=== PATIENT | male | born 1965 | race Caucasian/White ===

== ENCOUNTER 2018-02-06 08:55 | Day surgery (SDC) | payer MEDICARE ==
[2018-02-06] MEDS ORDERED: Depo-Medrol 40 MG/ML IM ONE (08:56)
[2018-02-06] MEDS ORDERED: Xylocaine 1% Vial 30 ML PF IJ ONE (08:56)
[2018-02-06] MEDS ORDERED: LIDOCAINE HCL 2% 100 MG/5 ML IJ ONE (08:56)
[2018-02-06] MEDS ORDERED: Lactated Ringers 1,000 ML IV ONE (10:29)
--- NOTE | 2018-02-06 12:17 | XRAY ---
Indication: L4, L5, and S1 MBB. Intraoperative fluoroscopy was provided for 33 seconds. 6 digital spot images submitted for interpretation demonstrates posterior spinal needles with the needle tips projecting over the left/right L4 transverse processes, right L5 transverse process, and right L5-S1 facet. Correlate with intraoperative findings/report.
--- NOTE | 2018-02-06 12:17 | XRAY ---
33 seconds of fluoroscopy time in surgery for L4, L5, and S1 MBB.
== END 2018-02-06 11:10 | disposition home or self-care (01) ==
LOC: SDC-PAIN 08:55
PROVIDERS: ATTEND Psychiatry & Neurology Pain Medicine
DX: M54.5 Low back pain (principal); M47.816 Spondylosis without myelopathy or radiculopathy, lumbar region; M46.96 Unspecified inflammatory spondylopathy, lumbar region
CPT/HCPCS: 64493; 64494; 72100; 77002; J1030; J2001

== ENCOUNTER 2018-05-08 09:11 | Day surgery (SDC) | payer MEDICARE ==
[2018-05-08] MEDS ORDERED: DIPRIVAN 200 MG/20 ML IV ONE (09:12)
[2018-05-08] MEDS ORDERED: Depo-Medrol 40 MG/ML IM ONE (09:12)
[2018-05-08] MEDS ORDERED: Xylocaine-Mpf 2% 5 Ml Vial IJ ONE (09:12)
[2018-05-08] MEDS ORDERED: Lactated Ringers 1,000 ML IV ONE (14:50)
--- NOTE | 2018-05-08 16:01 | XRAY ---
5 seconds fluoroscopy time in surgery for bilateral L4-S1 MBB.
--- NOTE | 2018-05-09 04:16 | XRAY ---
Indication: Bilateral L4-S1 MBB. Intraoperative fluoroscopy was provided for 5 seconds. One posterior intraoperative C-arm image was obtained. Posterior spinal needle tips are seen projected over the expected course of the left and right L4-S1 nerve roots. Correlate with intraoperative findings/report.
== END 2018-05-08 11:15 | disposition home or self-care (01) ==
LOC: SDC-PAIN 09:11
PROVIDERS: ATTEND Psychiatry & Neurology Pain Medicine
DX: M54.5 Low back pain (principal); M47.819 Spondylosis without myelopathy or radiculopathy, site unspecified; M47.817 Spondylosis without myelopathy or radiculopathy, lumbosacral region
CPT/HCPCS: 64493; 64494; 72020; 77003; J1030; J2704

== ENCOUNTER 2018-05-29 10:28 | Day surgery (SDC) | payer MEDICARE ==
[2018-05-29] MEDS ORDERED: Depo-Medrol 40 MG/ML IM ONE (10:29)
[2018-05-29] MEDS ORDERED: DIPRIVAN 200 MG/20 ML IV ONE (10:29)
[2018-05-29] MEDS ORDERED: Sodium Chloride 0.9% 10 ML FLUSH Syringe IJ ONE (10:29)
[2018-05-29] MEDS ORDERED: Xylocaine 1% Vial 30 ML PF IJ ONE (10:29)
[2018-05-29] MEDS ORDERED: Lactated Ringers 1,000 ML IV ONE (14:52)
--- NOTE | 2018-05-29 14:54 | XRAY ---
Indication: Lumbar MASHA. Intraoperative fluoroscopy was provided for 10 seconds. 2 digital spot images submitted for interpretation demonstrates a posterior midline spinal needle tip just posterior to the L4-L5 interspace. Correlate with intraoperative findings/report.
--- NOTE | 2018-05-29 16:22 | XRAY ---
10 seconds fluoroscopy time in surgery for Lumbar MASHA.
== END 2018-05-29 13:45 | disposition home or self-care (01) ==
LOC: SDC-PAIN 10:28
PROVIDERS: ATTEND Psychiatry & Neurology Pain Medicine
DX: M54.16 Radiculopathy, lumbar region (principal)
CPT/HCPCS: 62323; 72020; 77003; J1030; J2001; J2704; Q9966

== ENCOUNTER 2018-07-17 08:08 | Day surgery (SDC) | payer MEDICARE ==
[2018-07-17] MEDS ORDERED: Xylocaine 1% Vial 30 ML PF IJ ONE (08:09)
[2018-07-17] MEDS ORDERED: LIDOCAINE HCL 2% 100 MG/5 ML IJ ONE (08:09)
[2018-07-17] MEDS ORDERED: Depo-Medrol 40 MG/ML IM ONE (08:09)
[2018-07-17] MEDS ORDERED: DIPRIVAN 200 MG/20 ML IV ONE (08:09)
[2018-07-17] MEDS ORDERED: Ketamine HCl 50 MG/ML IJ ONE (08:09)
[2018-07-17] MEDS ORDERED: Marcaine 0.5% SDV 10 ML IJ ONE (08:09)
[2018-07-17] MEDS ORDERED: Lactated Ringers 1,000 ML IV ONE (12:02)
--- NOTE | 2018-07-17 12:17 | XRAY ---
22 seconds fluoroscopy time in surgery for L4-S1 RFA.
--- NOTE | 2018-07-18 09:05 | XRAY ---
Indication: L4-S1 RFA. Intraoperative fluoroscopy was provided for 22 seconds. 2 digital spot images submitted for interpretation demonstrates posterior spinal needle tips projecting over the expected course of the right L4-S1 nerve roots. Correlate with intraoperative findings/report.
== END 2018-07-17 10:15 | disposition home or self-care (01) ==
LOC: SDC-PAIN 08:08
PROVIDERS: ATTEND Psychiatry & Neurology Pain Medicine
DX: M47.817 Spondylosis without myelopathy or radiculopathy, lumbosacral region (principal); I10 Essential (primary) hypertension; Z79.899 Other long term (current) drug therapy
CPT/HCPCS: 64635; 64636; 72020; 77002; J1030; J2001; J2704

== ENCOUNTER 2018-08-21 13:16 | Day surgery (SDC) | payer MEDICARE ==
[2018-08-21] MEDS ORDERED: Marcaine 0.5% SDV 10 ML IJ ONE (13:17)
[2018-08-21] MEDS ORDERED: Depo-Medrol 40 MG/ML IM ONE (13:17)
[2018-08-21] MEDS ORDERED: DIPRIVAN 200 MG/20 ML IV ONE (13:17)
[2018-08-21] MEDS ORDERED: Xylocaine 1% Vial 30 ML PF IJ ONE ×2 (13:17)
[2018-08-21] MEDS ORDERED: Ketamine HCl 50 MG/ML IV ONE (13:17)
[2018-08-21] MEDS ORDERED: Lactated Ringers 1,000 ML IV ONE (14:39)
--- NOTE | 2018-08-21 16:27 | XRAY ---
Indication: Left L4-S1 RFA. Intraoperative fluoroscopy was provided for 19 seconds. 2 digital spot images submitted for interpretation demonstrates posterior needle tips projecting over the expected course of the left L4-S1 nerve roots. Correlate with intraoperative findings/report.
--- NOTE | 2018-08-21 16:33 | XRAY ---
19 seconds fluoroscopy time in surgery for left L4-S1 RFA.
== END 2018-08-21 15:03 | disposition home or self-care (01) ==
LOC: SDC-PAIN 13:16
PROVIDERS: ATTEND Psychiatry & Neurology Pain Medicine
DX: M47.817 Spondylosis without myelopathy or radiculopathy, lumbosacral region (principal); I10 Essential (primary) hypertension; M19.90 Unspecified osteoarthritis, unspecified site; Z79.899 Other long term (current) drug therapy
CPT/HCPCS: 72100; 77002; J1030; J2001; J2704

== ENCOUNTER 2018-09-25 09:05 | Day surgery (SDC) | payer MEDICARE ==
[2018-09-25] MEDS ORDERED: Ketamine HCl 50 MG/ML IJ ONE (09:06)
[2018-09-25] MEDS ORDERED: LIDOCAINE HCL 2% 100 MG/5 ML IJ ONE (09:06)
[2018-09-25] MEDS ORDERED: Depo-Medrol 40 MG/ML IM ONE (09:06)
[2018-09-25] MEDS ORDERED: Sodium Chloride 0.9(Preservative Free) 10 ML IJ ONE (09:06)
[2018-09-25] MEDS ORDERED: DIPRIVAN 200 MG/20 ML IV ONE (09:06)
--- NOTE | 2018-09-25 11:25 | XRAY ---
Indication: Bilateral L4-S1 MASHA. Intraoperative fluoroscopy was provided for 35 seconds. 5 digital spot images submitted for interpretation demonstrates posterior needle tips along the expected course of the left and right L4 and L5 nerve roots. Small amount of contrast injected for needle tip placement. Correlate with intraoperative findings/report.
--- NOTE | 2018-09-25 11:25 | XRAY ---
35 seconds fluoroscopy time in surgery for bilateral L4-S1 MASHA.
[2018-09-25] MEDS ORDERED: Lactated Ringers 1,000 ML IV ONE (17:09)
== END 2018-09-25 11:05 | disposition home or self-care (01) ==
LOC: SDC-PAIN 09:05
PROVIDERS: ATTEND Psychiatry & Neurology Pain Medicine
DX: M54.16 Radiculopathy, lumbar region (principal); Z79.899 Other long term (current) drug therapy; I10 Essential (primary) hypertension; M19.90 Unspecified osteoarthritis, unspecified site
CPT/HCPCS: 64483; 64484; 72100; 77003; J1030; J2704; Q9966

== ENCOUNTER 2019-06-25 13:11 | Day surgery (SDC) | payer MEDICARE ==
[2019-06-25] MEDS ORDERED: Xylocaine 1% Vial 30 ML PF IJ ONE (13:12)
[2019-06-25] MEDS ORDERED: Depo-Medrol 40 MG/ML IM ONE (13:12)
[2019-06-25] MEDS ORDERED: Sodium Chloride 0.9(Preservative Free) 10 ML IJ ONE (13:12)
--- NOTE | 2019-06-25 14:57 | XRAY ---
Indication: Right L4-S1 transforaminal MASHA. Intraoperative fluoroscopy was provided for 23 seconds. 3 digital spot images submitted for interpretation demonstrates posterior needle tips projecting over the expected course of the right L4 and L5 nerve roots. Small amount of contrast injected for needle tip placement. Correlate with intraoperative findings/report.
--- NOTE | 2019-06-25 16:31 | XRAY ---
23 seconds of fluoroscopy was used in surgery for a right L4-L5, L5-S1 transforaminal MASHA.
== END 2019-06-25 14:52 | disposition home or self-care (01) ==
LOC: SDC-PAIN 13:11
PROVIDERS: ATTEND Psychiatry & Neurology Pain Medicine
DX: M54.16 Radiculopathy, lumbar region (principal); I10 Essential (primary) hypertension; F41.8 Other specified anxiety disorders; Z79.899 Other long term (current) drug therapy
CPT/HCPCS: 64483; 64484; 72100; 77003; J1030; J2001; Q9966

== ENCOUNTER 2019-12-10 12:15 | Day surgery (SDC) | payer MEDICARE ==
[~2019-12-10 12:15] MED LIST: DIPRIVAN 200 MG/20 ML IV ONE; Ketamine HCl 50 MG/ML ONE
[2019-12-10] MEDS ORDERED: Sodium Chloride 0.9(Preservative Free) 10 ML IJ ONE (12:16)
[2019-12-10] MEDS ORDERED: Depo-Medrol 40 MG/ML IM ONE (12:16)
--- NOTE | 2019-12-10 14:22 | XRAY ---
Indication: Bilateral L4-L5 transforaminal MASHA. Intraoperative fluoroscopy was provided for 50 seconds. 6 digital spot images submitted for interpretation demonstrates posterior needle tips projecting over the the expected course of the left and right L4 nerve roots. Small amount of contrast injected for needle tip placement. Correlate with intraoperative findings/report.
--- NOTE | 2019-12-10 14:22 | XRAY ---
50 seconds fluoroscopy time in surgery for bilateral L4-L5 transforaminal MASHA.
[2019-12-10] MEDS ORDERED: Lactated Ringers 1,000 ML IV ONE (16:37)
== END 2019-12-10 13:37 | disposition home or self-care (01) ==
LOC: SDC-PAIN 12:15
PROVIDERS: ATTEND Psychiatry & Neurology Pain Medicine
DX: M54.16 Radiculopathy, lumbar region (principal); I10 Essential (primary) hypertension; Z79.899 Other long term (current) drug therapy
CPT/HCPCS: 64483; 72100; 77003; J1030; J2704; Q9966

== ENCOUNTER 2020-01-07 11:26 | Day surgery (SDC) | payer MEDICARE ==
[2020-01-07] MEDS ORDERED: Sodium Chloride 0.9(Preservative Free) 10 ML IJ ONE (11:27)
[2020-01-07] MEDS ORDERED: Depo-Medrol 40 MG/ML IM ONE (11:27)
[2020-01-07] MEDS ORDERED: DIPRIVAN 200 MG/20 ML IV ONE (12:12)
[2020-01-07] MEDS ORDERED: Ketamine HCl 50 MG/ML ONE (12:12)
--- NOTE | 2020-01-07 13:00 | XRAY ---
Indication: Right L4-S1 transforaminal MASHA. Intraoperative fluoroscopy was provided for 21 seconds. 3 digital spot images submitted for interpretation demonstrates posterior needle tips projecting over the expected course of the right L4 and L5 nerve roots. Small amount of contrast injected for needle tip placement. Correlate with intraoperative findings/report.
--- NOTE | 2020-01-07 13:04 | XRAY ---
21 seconds of fluoroscopy was used in surgery for a right L4-L5 and L5-S1 transforaminal MASHA.
[2020-01-07] MEDS ORDERED: Lactated Ringers 1,000 ML IV ONE (14:35)
== END 2020-01-07 12:40 | disposition home or self-care (01) ==
LOC: SDC-PAIN 11:26
PROVIDERS: ATTEND Psychiatry & Neurology Pain Medicine
DX: M54.16 Radiculopathy, lumbar region (principal); I10 Essential (primary) hypertension; Z79.899 Other long term (current) drug therapy
CPT/HCPCS: 64483; 64484; 72100; 77003; J1030; J2704; Q9966

== ENCOUNTER 2021-05-18 12:12 | Day surgery (SDC) | payer MEDICARE ==
[2021-05-18] MEDS ORDERED: Depo-Medrol 40 MG/ML IM ONE (12:13)
[2021-05-18] MEDS ORDERED: BUPIVACAINE 0.5% VIAL IJ ONE (12:13)
[2021-05-18] MEDS ORDERED: Lactated Ringers 1,000 ML IV ONE (13:22)
[2021-05-18] MEDS ORDERED: DIPRIVAN 200 MG/20 ML IV ONE (13:35)
--- NOTE | 2021-05-18 15:19 | XRAY ---
Indication: Bilateral SI joint injection. Intraoperative fluoroscopy provided for 16 seconds. 3 digital spot images demonstrates posterior needle tip projecting over the inferior left and right SI joints. Correlate with intraoperative findings/report.
--- NOTE | 2021-05-18 15:34 | XRAY ---
16 seconds fluoroscopy time in surgery for injections of both SI joints.
== END 2021-05-18 14:05 | disposition home or self-care (01) ==
LOC: SDC-PAIN 12:12
PROVIDERS: ATTEND Psychiatry & Neurology Pain Medicine
DX: M46.1 Sacroiliitis, not elsewhere classified (principal); I10 Essential (primary) hypertension; M19.90 Unspecified osteoarthritis, unspecified site; Z79.899 Other long term (current) drug therapy
CPT/HCPCS: 27096; 72202; 77002; G0260; J1030; J2704

== ENCOUNTER 2023-02-21 11:45 | Day surgery (SDC) | payer MEDICARE, SELFPAY ==
[2023-02-21] MEDS ORDERED: Sodium Chloride 0.9(Preservative Free) 10 ML IJ ONE (11:46)
[2023-02-21] MEDS ORDERED: Decadron 4 MG INJ IV ONE (11:46)
[2023-02-21] MEDS ORDERED: LIDOCAINE HCL 1% 50 MG/5 ML VL PF IJ ONE (11:46)
[2023-02-21] MEDS ORDERED: Depo-Medrol 40 MG/ML IM ONE (11:46)
[2023-02-21] MEDS ORDERED: DIPRIVAN 200 MG/20 ML IV ONE ×2 (13:12→13:22)
[2023-02-21] MEDS ORDERED: Lactated Ringers 1,000 ML IV ONE (13:31)
--- NOTE | 2023-02-21 14:24 | XRAY ---
Indication: Left piriformis injection. Intraoperative fluoroscopy provided for 8 seconds. Single digital spot image submitted for interpretation demonstrates posterior needle tip projecting over the left piriformis. Small amount of contrast injected for needle tip placement. Correlate with intraoperative findings/report.
--- NOTE | 2023-02-21 14:25 | XRAY ---
Indication: Left L4-S1 transforaminal MASHA. Intraoperative fluoroscopy provided for 23 seconds. 4 digital spot image submitted for interpretation demonstrates posterior needle tips projecting over the expected left L4 and L5 nerve roots. Small amount of contrast injected for needle tip placement. Correlate with intraoperative findings/report.
--- NOTE | 2023-02-21 14:26 | XRAY ---
23 seconds of fluoroscopy was used in surgery for a left L4-S1 transforaminal MASHA.
--- NOTE | 2023-02-21 14:26 | XRAY ---
8 seconds of fluoroscopy was used in surgery for a left piriformis injection.
== END 2023-02-21 13:42 | disposition home or self-care (01) ==
LOC: SDC-PAIN 11:45
PROVIDERS: ATTEND Psychiatry & Neurology Pain Medicine
DX: M54.16 Radiculopathy, lumbar region (principal); M79.18 Myalgia, other site; Z79.899 Other long term (current) drug therapy
CPT/HCPCS: 20552; 64483; 64484; 72100; 72170; 77002; 77003; J1030; J1100; J2001; J2704; Q9966

== ENCOUNTER 2023-04-04 13:52 | Day surgery (SDC) | payer MEDICARE ==
[2023-04-04] MEDS ORDERED: BUPIVACAINE 0.5% VIAL IJ ONE (13:53)
[2023-04-04] MEDS ORDERED: Depo-Medrol 40 MG/ML IM ONE (13:53)
[2023-04-04] MEDS ORDERED: DIPRIVAN 200 MG/20 ML IV ONE (15:59)
[2023-04-04] MEDS ORDERED: MORPHINE SULFATE 2 MG INJ ONE (16:18)
--- NOTE | 2023-04-04 16:47 | XRAY ---
Indication: Left hip injection. Intraoperative fluoroscopy provided for 9 seconds. Single digital spot image submitted for interpretation demonstrates needle tip lateral to the left femur neck. Small amount of contrast injected for needle tip placement. Correlate with intraoperative findings/report.
[2023-04-04] MEDS ORDERED: Lactated Ringers 1,000 ML IV ONE (17:26)
== END 2023-04-04 16:38 | disposition home or self-care (01) ==
LOC: SDC-PAIN 13:52
PROVIDERS: ATTEND Psychiatry & Neurology Pain Medicine
DX: M16.12 Unilateral primary osteoarthritis, left hip (principal)
CPT/HCPCS: 20610; 73501; 77002; J1030; J2270; J2704; Q9966

== ENCOUNTER 2023-11-14 12:02 | Day surgery (SDC) | payer MEDICARE ==
[2023-11-14] MEDS ORDERED: Sodium Chloride 0.9(Preservative Free) 10 ML IJ ONE (12:03)
[2023-11-14] MEDS ORDERED: BUPIVACAINE 0.5% VIAL IJ ONE (12:03)
[2023-11-14] MEDS ORDERED: Decadron 4 MG INJ IV ONE (12:03)
[2023-11-14] MEDS ORDERED: Depo-Medrol 40 MG/ML IM ONE (12:03)
[2023-11-14] MEDS ORDERED: DIPRIVAN 200 MG/20 ML IV ONE (14:03)
[2023-11-14] MEDS ORDERED: MORPHINE SULFATE 2 MG INJ ONE (14:25)
[2023-11-14] MEDS ORDERED: Lactated Ringers 1,000 ML IV ONE (14:29)
--- NOTE | 2023-11-14 15:29 | XRAY ---
Indication: Left L4-S1 transforaminal MASHA. Intraoperative fluoroscopy provided for 22 seconds. 4 digital spot images submitted for interpretation demonstrates posterior needle tip projecting over the expected left L4 and L5 nerve roots. Small amount of contrast injected for needle tip placement. Correlate with intraoperative findings/report.
--- NOTE | 2023-11-14 15:29 | XRAY ---
Indication: Left hip injection. Intraoperative fluoroscopy provided for 9 seconds. Single digital spot image obtained prone submitted for interpretation demonstrates needle tip lateral to the left femur neck. Small amount of contrast injected for needle tip placement. Correlate with intraoperative findings/report.
--- NOTE | 2023-11-14 15:35 | XRAY ---
9 seconds of fluoroscopy was used in surgery for a left intra-articular hip injection.
--- NOTE | 2023-11-14 15:36 | XRAY ---
22 seconds of fluoroscopy was used in surgery for a left L4-S1 transforaminal MASHA.
== END 2023-11-14 14:37 | disposition home or self-care (01) ==
LOC: SDC-PAIN 12:02
PROVIDERS: ATTEND Psychiatry & Neurology Pain Medicine
DX: M54.16 Radiculopathy, lumbar region (principal); M16.12 Unilateral primary osteoarthritis, left hip
CPT/HCPCS: 20610; 64483; 64484; 72100; 73501; 77002; 77003; J1100; J2270; J2704; Q9966

== ENCOUNTER 2024-07-02 10:22 | Day surgery (SDC) | payer MEDICARE ==
[2024-07-02] MEDS ORDERED: Sodium Chloride 0.9(Preservative Free) 10 ML IJ ONE (10:23)
[2024-07-02] MEDS ORDERED: dexAMETHasone sodium phosphate IJ ONE (10:23)
[2024-07-02] MEDS ORDERED: propofoL IV ONE (11:39)
--- NOTE | 2024-07-02 13:24 | XRAY ---
Indication: Left L4-S1 transforaminal MASHA. Intraoperative fluoroscopy provided for 23 seconds. 3 digital spot images submitted for interpretation demonstrates posterior needle tips projecting over the expected left L4 and L5 nerve roots. Small amount of contrast injected for needle tip placement. Correlate with intraoperative findings/report.
--- NOTE | 2024-07-02 14:57 | XRAY ---
23 seconds of fluoroscopy was used in surgery for a left L4-S1 transforaminal MASHA.
== END 2024-07-02 12:14 | disposition home or self-care (01) ==
LOC: SDC-PAIN 10:22
PROVIDERS: ATTEND Psychiatry & Neurology Pain Medicine
DX: M54.16 Radiculopathy, lumbar region (principal)
CPT/HCPCS: 64483; 64484; 72100; 77003; J1100; J2704; Q9966

== ENCOUNTER 2024-08-07 09:33 | Day surgery (SDC) | payer MEDICARE ==
[2024-08-07] MEDS ORDERED: methylPREDNISolone acetate IM ONE (09:34)
[2024-08-07] MEDS ORDERED: BUPIVACAINE 0.5% VIAL IJ ONE (09:34)
[2024-08-07] MEDS ORDERED: propofoL IV ONE (11:08)
--- NOTE | 2024-08-07 21:09 | XRAY ---
Indication: Left hip injection. Intraoperative fluoroscopy provided for 6 seconds. Single digital spot image submitted for interpretation demonstrates needle tips projecting lateral left femur neck. Small amount of contrast injected for both needle tip placement. Correlate with intraoperative findings/report.
--- NOTE | 2024-08-07 21:51 | XRAY ---
6 seconds of fluoroscopy was used in surgery for a left intra-articular hip injection.
== END 2024-08-07 11:35 | disposition home or self-care (01) ==
LOC: SDC-PAIN 09:33
PROVIDERS: ATTEND Psychiatry & Neurology Pain Medicine
DX: M16.12 Unilateral primary osteoarthritis, left hip (principal)
CPT/HCPCS: 20610; 73501; 77002; J1010; J2704; Q9966